=== PATIENT | female | born 1990 | race Caucasian/White ===

== ENCOUNTER 2020-02-13 23:49 | Emergency (ER) | payer SELFPAY ==
[~2020-02-13] VITALS: Ht 157.5 cm; Wt 49.9 kg
[2020-02-14] MEDS ORDERED: ALBUTEROL FS 2.5 MG/3 ML VIAL.NEB ONE (00:16)
[2020-02-14 00:28] VITALS: BP 130/83
[2020-02-14] MEDS ORDERED: ALBUTEROL FS 2.5 MG/3 ML VIAL.NEB NEB ONE (00:30)
--- NOTE | 2020-02-14 00:31 | NUR ---
PT CAME TO ER BED 1 C/O SHORTNESS OF BREATH. PATIENT STATES THAT IT HAS BEEN DIFFICULT TO BREATHE. SHE STATES THAT WHEN SHE SMOKES CIGARETTES, SHE IS ABLE TO FEEL MORE RELAXED AND BREATHE EASIER. C/O PAIN MID BACK WHEN BREATHING. AAOX4. BREATHING EVENLY AND UNLABORED ON ROOM AIR 98%. CONNECTED TO MONITOR.
[2020-02-14 00:33] LABS: BASOPHILS # (AUTO) 0.1 /CMM (0.0-0.2); BASOPHILS % (AUTO) 1.3 % (0.0-2.0); EOSINOPHILS % (AUTO) 1.2 % (0.0-6.0); HEMATOCRIT 42 % (33-45); HEMOGLOBIN 14.1 g/dL (11.5-14.8); LYMPHOCYTES # (AUTO) 3.4 /CMM (0.8-4.8); LYMPHOCYTES % (AUTO) 41.8 % (20.0-44.0); MEAN CORPUSCULAR HGB CONC 33 g/dl (31.0-36.0); MEAN CORPUSCULAR VOLUME 89 fL (82-100); MONOCYTES # (AUTO) 0.6 /CMM (0.1-1.30); MONOCYTES % (AUTO) 7.6 % (2.0-12.0); NEUTROPHILS % (AUTO) 48.1 % (43.0-81.0); PLATELET COUNT (AUTO) 255 /CMM (150-450); RED BLOOD CELL COUNT(AUTO) 4.72 MIL/uL (4.0-5.2); WHITE BLOOD COUNT (AUTO) 8.2 K/uL (4.3-11.0)
[2020-02-14 00:41] LABS: CALCIUM, SERUM 9.6 mg/dL (8.5-10.1); CARBON DIOXIDE 28 mmol/L (21-32); CHLORIDE 104 mmol/L (98-107); CREATININE 0.7 mg/dL (0.6-1.3); GLUCOSE 104 mg/dL (74-106); POTASSIUM 3.2 mmol/L (3.5-5.1); SODIUM SERUM 142 mmol/L (136-145); UREA NITROGEN, BLOOD 8 mg/dL (7-18)
[2020-02-14] MEDS ORDERED: IOHEXOL-350 100 ML VIAL IV ONE (01:07)
[2020-02-14] MEDS ORDERED: CT SWABBABLE VALVE TRANS SET 1 EA INFUS.SET MC ONE (01:07)
--- NOTE | 2020-02-14 01:31 | NUR ---
SENT TO CT
--- NOTE | 2020-02-14 01:57 | NUR ---
Patient does not wish to proceed with medical care recommended by Dr. Soni. Patient given information related to possible complications, up to and including , which could occur as a result of leaving the hospital at this time. Patient verbalizes understanding of risks involved due to leaving against medical advice. Patient has signed AMA form.
--- NOTE | 2020-02-14 01:57 | NUR ---
IV removed. Catheter intact and site benign. Pressure and 4x4 applied to site. No bleeding noted.
== END 2020-02-14 02:50 | disposition left against medical advice (07) ==
LOC: ER 23:54
DX: R06.00 Dyspnea, unspecified (principal); F17.200 Nicotine dependence, unspecified, uncomplicated
CPT/HCPCS: 36415; 71045-TC; 80048-TC; 84484-TC; 85025-TC; 85378-TC; Q9967